=== PATIENT | male | born 1995 | race Caucasian/White ===

== ENCOUNTER 2019-01-08 15:04 | Emergency (ER) | payer BC | END 2019-01-08 16:08 | disposition home or self-care (01) | LOC: FER 15:04 ==

== ENCOUNTER 2019-07-29 12:14 | Emergency (ER) | payer BC ==
[2019-07-29] MEDS ORDERED: AZITHROMYCIN 500 MG TABLET PO ONE (12:33)
[2019-07-29 12:36] VITALS: BP 128/84; PULSE 94; TEMP 98.1; BMI 26.5
--- NOTE | 2019-07-29 12:38 | PDOC ---
History of Present Illness - General Chief Complaint: Non EmpBld/Body Flud Exposure Stated Complaint: STD Time Seen by Provider: 07/29/19 12:17 History Source: Patient Exam Limitations: No Limitations - History of Present Illness Initial Comments: 07/29/19 12:34 24 y/o male with itching in genital area yesterday. Treated for STD in past and feels similar. No hx of herpes. No dischargeor burning. No back pain, fever or chills. Is this a multiple visit Asthma Patient?: No Past History - Past Medical History Allergies/Adverse Reactions: Allergies Allergy/AdvReac Type Severity Reaction Status Date / Time No Known Allergies Allergy Verified 07/29/19 12:17 Home Medications: Ambulatory Orders NK [No Known Home Medication] 03/17/16 Asthma: Yes COPD: No CHF: No - Surgical History GI Surgery: Yes (HERNIA) - Immunization History Immunization Up to Date: Yes - Psycho Social/Smoking Cessation Hx Smoking Status: No Smoking History: Never smoked Have you smoked in the past 12 months: No Number of Cigarettes Smoked Daily: 0 Hx Alcohol Use: No Drug/Substance Use Hx: No Substance Use Type: None Review of Systems - Review of Systems Able to Perform ROS?: Yes Is the patient limited [place]er proficient: No Constitutional: No: Chills, Fever Respiratory: No: Cough, Shortness of Breath Cardiac (ROS): No: Chest Pain : No: Burning, Discharge Musculoskeletal: No: Back Pain All Other Systems: Reviewed and Negative *Physical Exam - Physical Exam General Appearance: Yes: Nourished, Appropriately Dressed. No: Apparent Distress HEENT: positive: EOMI, KATHY, Normal ENT Inspection Neck: positive: Trachea midline, Normal Thyroid, Supple Respiratory/Chest: positive: Lungs Clear, Normal Breath Sounds Cardiovascular: positive: Regular Rhythm, Regular Rate, S1, S2. negative: Edema , JVD, Murmur Vascular Pulses: Femoral (R): 4+, Femoral (L): 4+, Carotid (R): 4+, Carotid (L) : 4+, Dorsalis-Pedis (R): 4+, Doralis-Pedis (L): 4+ Gastrointestinal/Abdominal: positive: Normal Bowel Sounds, Flat, Soft. negative : Tender, Organomegaly Male Genitalia: positive: normal genitalia, other (mild erythema to let scrotal area, no blisters or lesions noted). negative: discharge Lymphatic: negative: Adenopathy, Tenderness, Other Musculoskeletal: positive: Normal Inspection. 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 NML intact, Fully Oriented, Alert, Normal Mood/ Affect, Normal Response, Motor Strength 12/07 ED Treatment Course - ADDITIONAL ORDERS Additional order review: 07/29/19 12:37 Await blood/urine tests Will treat for STD Patient is in agreement with plan Discharge - Discharge Information Problems reviewed: Yes Clinical Impression/Diagnosis: Exposure to venereal disease Condition: Good Disposition: HOME - Admission No - Follow up/Referral - Patient Discharge Instructions Patient Printed Discharge Instructions: How to Detect and Treat STDs Additional Instructions: Await results If worsen return to ER - Post Discharge Activity Work/Back to School Note: Back to Work
[2019-07-29] MEDS ORDERED: AZITHROMYCIN 500 MG TABLET ONE (12:46)
== END 2019-07-29 13:06 | disposition home or self-care (01) ==
LOC: FER 12:14
DX: Z20.2 Contact with and (suspected) exposure to infections with a predominantly sexual mode of transmission (principal); Z86.19 Personal history of other infectious and parasitic diseases
CPT/HCPCS: 36415; 87389; 87491; 87591; 99281-25

== ENCOUNTER 2020-02-23 21:50 | Emergency (ER) | payer BC ==
[2020-02-23 21:53] VITALS: BP 140/86; PULSE 88; TEMP 98.5; BMI 27.1
[2020-02-23] MEDS ORDERED: ACETAMINOPHEN 500 MG TABLET (FP) PO ONE (22:08)
[2020-02-23] MEDS ORDERED: ACETAMINOPHEN 500 MG TABLET (FP) ONE (22:21)
--- NOTE | 2020-02-23 22:30 | PDOC ---
Documentation entered by Heather Jasso SCRIBE, acting as scribe for Enma Babcock MD. Enma Babcock MD: This documentation has been prepared by the Romero zarco Ana, SCRIBE, under my direction and personally reviewed by me in its entirety. I confirm that the documentation accurately reflects all work, treatment, procedures, and medical decision making performed by me. History of Present Illness - General Chief Complaint: Cold Symptoms Stated Complaint: FEVER, HEADACHE History Source: Patient, Significant Other Exam Limitations: No Limitations - History of Present Illness Initial Comments: 02/23/20 21:53 Patient is a 24 year old male with no significant past medical history who presents to the ED with cold symptoms, a headache, and a fever since earlier today. Patient said he is "confused and disoriented" "can't think straight" and feels that "something is not right". Patient stated he had a fever for 3 days last week, he stayed in bed, and that today his temperature reached 100.01 along with lightheadedness. Patient also endorses diarrhea 3 days ago and earlier today accompanied with mild abdominal pain. Patient disclosed he has not self medicated. Patient stated that he was tested for COVID last week and that his results came back negative. Patient denies: nausea, vomiting, SOB cough, spending time outside, or any other related symptoms. Allergies: NKDA ROS General: Fevers. No chills, no weakness, no weight loss HEENT: No change in vision. No sore throat. No ear pain CardioVascular: No chest pain or shortness of breath Respiratory:No cough, or wheezing. Gastrointestinal: +Diarrhea. No nausea, vomiting, or constipation, No rectal bleeding Genitourinary: No dysuria, hematuria, or frequency Musculoskeletal: +Mild abdominal pain. Neurologic: +Headache. No vertigo, dizziness or loss of consciousness Psychiatric: nor depression Skin: No rashes or easy bruising Endocrine: no increased thirst or abnormal weight change Allergic: no skin or latex allergy All other systems reviewed and normal PE General: Well-nourished well-developed individual, no acute distress HEENT: Throat: Normal, tonsils normal, no erythema or exudate Neck: No neck stiffness. No Meningeal Signs. Supple, no lymphadenopathy Eyes::Pupils equal reactive and round, extraocular motion intact Chest: Nontender to palpation Cardiac: S1-S2 normal, regular rate and rhythm, no murmurs rubs or gallops Respiratory: Lungs clear to auscultation bilateral Abdomen: Soft, nondistended, normal bowel sounds, nontender to palpation diffusely Extremities: Warm, dry, no cyanosis, clubbing, or edema Skin: No rashes Neuro: Alert and oriented x3, nonfocal exam, grossly intact, normal gait Psych: Normal mood and affect 02/23/20 22:29 Assessment and plan: This is a 24-year-old male who comes in complaining of not feeling right. Patient is complaining of mild headache on the top of his head with fever several days ago. Patient said he is having a hard time concentrating and feels lightheaded. Patient had a normal exam. Basic labs were sent and plan is if they are unremarkable patient will be discharged and follow-up with his primary care doctor 02/23/20 22:55 Patient's clinical condition remains unchanged. Patient's blood work is all nor mal. Patient was reassured that there is nothing further that we need to do here in the ED and that he should follow-up with his primary care doctor if not better in a couple more days Past History - Medical History Allergies/Adverse Reactions: Allergies Allergy/AdvReac Type Severity Reaction Status Date / Time No Known Allergies Allergy Verified 07/29/19 12:17 Home Medications: Ambulatory Orders NK [No Known Home Medication] 03/17/16 Asthma: Yes COPD: No CHF: No - Surgical History GI Surgery: Yes (HERNIA) - Immunization History Immunization Up to Date: Yes - Psycho-Social/Smoking History Smoking Status: No Smoking History: Never smoked Have you smoked in the past 12 months: No Number of Cigarettes Smoked Daily: 0 Information on smoking cessation initiated: No - Substance Abuse Hx (Audit-C & DAST Scrn) Number of drinks the patient has on a typical day: 1 or 2 How often the patient has six or more drinks on one occasion: Less than monthly Score: In Men: 4 or > Positive; In Women: 3 or > Positive: 1 Screen Result (Pos requires Nsg. Audit-10AR): Negative In the last yr the pt used illegal drug/Rx for NonMed reason: No Score: Yes response is considered Positive: 0 Screen Result (Positive result requires Nsg. DAST-10): Negative *Physical Exam - Vital Signs Last Vital Signs Temp Pulse Resp BP Pulse Ox 98.5 F 88 18 140/86 100 02/23/20 21:51 02/23/20 21:51 02/23/20 21:51 02/23/20 21:51 02/23/20 21:51 ED Treatment Course - LABORATORY CBC & Chemistry Diagram: 02/23/20 22:18 02/23/20 22:18 Discharge - Discharge Information Problems reviewed: Yes Clinical Impression/Diagnosis: Viral illness Condition: Stable Disposition: HOME - Admission No - Follow up/Referral - Patient Discharge Instructions Additional Instructions: Take Tylenol or Motrin as needed for fever and headache return to the emergency department immediately with ANY new, persistent or worsening symptoms. Continue any medications as previously prescribed by your physician. You should follow up with your primary doctor as soon as possible regarding today's emergency department visit. . Please make sure your doctor reviews the results of your emergency evaluation. Thank you for coming to the Emergency Department today for your care. It was a pleasure to see you today. Please note that your evaluation is INCOMPLETE until you follow-up with your doctor. - Post Discharge Activity
[2020-02-23 22:46] LABS: BASO % 0.9 % (0-2.0); EOS % 0.9 % (0-4.5); HEMATOCRIT 42.6 % (35.4-49); HEMOGLOBIN 14.5 GM/dl (11.7-16.9); LYMPH % 15.7 % (8-40); MCH 29.9 pg (25.7-33.7); MCHC 34.1 g/dl (32.0-35.9); MEAN CELL VOLUME 87.8 fl (80-96); MEAN PLT VOLUME 7.9 fl (7.5-11.1); MONO % 8.1 % (3.8-10.2); NEUT % 74.4 % (42.8-82.8); PLATELET COUNT 332 K/MM3 (134-434); RBC 4.85 M/mm3 (4.00-5.60); RDW 11.4 % (11.9-15.9); WHITE BLOOD COUNT 6.5 K/mm3 (4.0-10.8)
[2020-02-23 22:49] LABS: ALBUMIN 4.2 g/dl (3.4-5.0); BILIRUBIN,TOTAL 0.7 mg/dl (0.2-1); CALCIUM 9.1 mg/dl (8.5-10); CREATININE 0.7 mg/dl (0.55-1.3); POTASSIUM 3.9 mmol/L (3.5-5.1); TOT PROT 7.1 g/dl (6.4-8.2)
== END 2020-02-23 23:04 | disposition home or self-care (01) ==
LOC: FER 21:50
DX: B34.9 Viral infection, unspecified (principal)
CPT/HCPCS: 36415; 80053; 85025; 99283-25

== ENCOUNTER 2022-07-11 10:50 | Emergency (ER) | payer BC, OTHER ==
[2022-07-11 11:13] VITALS: BP 123/80; PULSE 106; RESP 16; TEMP 100; BMI 35.9
[2022-07-11] MEDS ORDERED: IBUPROFEN 400 MG TABLET (FP) PO ONE ×2 (11:49→11:58)
[2022-07-11 12:25] LABS: HEMOGLOBIN 16.5 G/dL (11.7-16.9); MCH 29.7 pg (25.7-33.7); MCHC 34.3 g/dl (32.0-35.9); MEAN CELL VOLUME 86.4 fl (80-96); MEAN PLT VOLUME 8.5 fl (7.5-11.1); PLATELET COUNT 230.8 10^3/uL (134-434); RBC 5.55 10^6/uL (4.00-5.60); RDW 14.1 % (11.9-15.9); WHITE BLOOD COUNT 8.3 10^3/uL (4.0-10.8)
[2022-07-11 12:32] LABS: BILIRUBIN,TOTAL 1.9 mg/dl (0.2-1); CALCIUM 8.9 mg/dl (8.5-10); TOT PROT 7.1 g/dl (6.4-8.2)
[2022-07-11 12:41] LABS: PLATELET ESTIMATE ADEQUATE
== END 2022-07-11 13:21 | disposition home or self-care (01) ==
LOC: FER 10:50
DX: R07.89 Other chest pain (principal)
CPT/HCPCS: 0241U-QW; 36415; 71045-TC-FY; 80053; 84484; 85025; 93005; 99285-25

== ENCOUNTER 2023-01-20 03:35 | Emergency (ER) | payer OTHER ==
[2023-01-20 03:58] VITALS: BP 133/93; PULSE 80; RESP 16; TEMP 97.9; BMI 36.0
[2023-01-20] MEDS ORDERED: FAMOTIDINE 20 MG/50 ML IVPB 20 MG/50 ML MG IVPB ONE (04:13)
[2023-01-20] MEDS ORDERED: FAMOTIDINE 20 MG TABLET PO ONE (04:22)
[2023-01-20] MEDS ORDERED: FAMOTIDINE 20 MG TABLET ONE (04:23)
[2023-01-20 05:26] LABS: BASO % 0.5 % (0-2.0); EOS % 4.7 % (0-4.5); HEMATOCRIT 42.9 % (35.4-49); HEMOGLOBIN 14.8 GM/dL (11.7-16.9); LYMPH % 30.8 % (8-40); MCHC 34.6 g/dl (32.0-35.9); MEAN CELL VOLUME 86.8 fl (80-96); MEAN PLT VOLUME 9.6 fl (7.5-11.1); MONO % 10.1 % (3.8-10.2); NEUT % 53.9 % (42.8-82.8); PLATELET COUNT 239 10^3/uL (134-434); RBC 4.94 M/mm3 (4.00-5.60); RDW 12.9 % (11.9-15.9); WHITE BLOOD COUNT 6.8 K/mm3 (4.0-10.0)
[2023-01-20 05:48] LABS: ALBUMIN 3.8 g/dl (3.4-5.0); CALCIUM 8.9 mg/dL (8.5-10.1)
[2023-01-20 05:49] LABS: BLOOD UREA NITROGEN 19.6 mg/dL (7-18)
[2023-01-20 05:52] LABS: CREATININE 0.9 mg/dL (0.55-1.3)
[2023-01-20 05:53] LABS: TOT PROT 6.9 g/dl (6.4-8.2)
[2023-01-20 05:54] LABS: BILIRUBIN,TOTAL 0.6 mg/dL (0.2-1)
== END 2023-01-20 06:15 | disposition home or self-care (01) ==
LOC: FER 03:35
DX: R07.89 Other chest pain (principal)
CPT/HCPCS: 36415; 80053; 84484; 85025; 93005; 99284-25

== ENCOUNTER 2023-09-02 20:11 | Emergency (ER) | payer OTHER ==
[2023-09-02 20:15] VITALS: BP 184/100; PULSE 64; RESP 14; TEMP 98.4; BMI 31.5
== END 2023-09-02 22:12 | disposition home or self-care (01) ==
LOC: FER 20:11 → JERFT 20:11 → FER 22:12
DX: R07.0 Pain in throat (principal)
CPT/HCPCS: 99283-25